=== PATIENT | male | born 1985 | race Caucasian/White ===

== ENCOUNTER → 2020-12-03 | Outpatient (CLI) | payer OTHER, MEDICARE ==
[~2020-12-03] MED LIST: ALTACE5 MG PO; CLARITIN10 M2 PO; EPIPEN 2-P0.3 MG/0.3 INJ; KEPPRA500 MG PO; LEVOTHYROXINE112 MC1 PO; OMEPRAZOLE40 MG PO; ZONEGRAN100 MG PO
[2020-12-03 13:43] LABS: HEMOGLOBIN 16.8 gm/dl (14.0-17.5); RED BLOOD COUNT 5.44 M/UL (4.20-5.50); WHITE BLOOD COUNT 4.7 K/UL (4.5-11.0)
== END ==
LOC: OPSV2 12:21
PROVIDERS: Surgery
DX: Z01.818 Encounter for other preprocedural examination (principal); Z20.822 Contact with and (suspected) exposure to COVID-19
CPT/HCPCS: 36415; 71046; 80053; 81001; 85025; 85610; 85730; 86850; 86900; 86901; 87635; 93005

== ENCOUNTER → 2020-12-04 | Day surgery (SDC) | payer OTHER, MEDICARE | END | disposition home or self-care (01) | LOC: OR 06:07 | DX: R56.9 Unspecified convulsions (principal); I10 Essential (primary) hypertension; E78.5 Hyperlipidemia, unspecified; E03.9 Hypothyroidism, unspecified; J18.9 Pneumonia, unspecified organism; J45.909 Unspecified asthma, uncomplicated; Z20.822 Contact with and (suspected) exposure to COVID-19; Z79.899 Other long term (current) drug therapy; Z88.0 Allergy status to penicillin; Z88.3 Allergy status to other anti-infective agents | CPT/HCPCS: C1767; C1778; J1580; J2001; J2250; J2405; J2704; J2710; J3010; J3370; J7040; J7050; J7070; J7120 ==